=== PATIENT | male | born 1950 | race Caucasian/White ===

== ENCOUNTER 2022-09-25 12:53 | Outpatient (CLI) | payer MEDICARE, OTHER, SELFPAY ==
--- NOTE | 2022-09-25 13:20 | CT_ITS ---
WS: [id number] CT ABDOMEN PELVIS TECHNIQUE: Noncontrast CT of the abdomen and pelvis with coronal and sagittal reformatted images. CLINICAL INFORMATION: HEMATOSPERMIA/HX OF KIDNEY STONES COMPARISON: CT 2019 DLP: 422.[address] scans at [facility] use at least one of these dose optimization techniques: automated e xposure control; mA and/or kV adjustment per patient size (includes targeted exams where dose is matc hed to clinical indication); or iterative reconstruction. FINDINGS: Lung bases are well aerated. Noncontrast liver is normal. Gallbladder is contracted. Normal noncontra st spleen. Normal GE junction. Adrenal glands are normal. Noncontrast pancreas is normal. Normal caliber abdominal aorta. No hydrone phrosis in either kidney. No obstructing renal or ureteral calculi. Pelvic phleboliths. Small increas ed attenuation RIGHT renal parenchymal lesion likely proteinaceous or hemorrhagic cyst measuring 5 mm . Sigmoid constipation. No high-grade small or large bowel obstruction. Prominent prostate measuring 4. [address]/CT abdomen pelvis wo con [id number] IMPRESSION: 1. Enlarged RIGHT hepatic lobe with mild hepatomegaly. 2. No hydronephrosis in either kidney. No obstructing renal or ureteral calcul i. 3. Enlarged prostate measuring 4.5 CM. 4. Sigmoid constipation. 5. No other remarkable findings.
[2022-09-25 13:49] LABS: Basophils # 0.1 10^3/uL (0.0-0.1); Basophils % 0.9 %; Eosinophils # 0.2 10^3/uL (0.0-0.8); Eosinophils % 3.6 %; Hematocrit 43.8 % (42.0-52.0); Lymphocytes # 2.1 10^3/uL (0.8-4.8); Lymphocytes % 33.3 %; Mean Corpuscular Hemoglobin 31.1 pg (28.0-34.0); Mean Corpuscular Volume 97.3 fl (80-94); Mean Platelet Volume 9.9 fL (7.4-10.4); Monocytes # 0.4 10^3/uL (0.2-0.9); Monocytes % 6.4 %; Neutrophils # 3.52 10^3/uL (1.8-7.7); Neutrophils % 55.5 %; Nucleated Red Blood Cells % 0 %; Platelet Count 219 10^3/cmm (130-400); White Blood Count 6.4 10^3/uL (4.0-10.0)
[2022-09-25 17:35] LABS: Prostate Specific Antigen 0.926 ng/mL (0-4)
== END 2022-09-25 12:54 | disposition home or self-care (01) ==
PROVIDERS: PCP Nurse Practitioner Family; Visit Provider Nurse Practitioner Family
DX: N42.9 Disorder of prostate, unspecified (principal); Z87.442 Personal history of urinary calculi; R16.0 Hepatomegaly, not elsewhere classified; K59.00 Constipation, unspecified; N40.0 Benign prostatic hyperplasia without lower urinary tract symptoms
CPT/HCPCS: 74176; 84153; 85025

== ENCOUNTER 2023-11-05 11:52 | Emergency (ER) | payer MEDICARE, OTHER, SELFPAY ==
[2023-11-05 12:14] VITALS: PULSE 76; RESP 18; TEMP 36.6; O2SAT 98; BMI 21.7
--- NOTE | 2023-11-05 12:56 | ED_ITS ---
HPI - Animal Bite General: Chief Complaint: Animal Bite Stated Complaint: dog bite Time Seen by Provider: 11/05/23 12:50 History of Present Illness: 73-year-old male patient comes in for ev aluation of injuries secondary to a dog bite. Patient was riding his bike today when he was bit by dog on the leash. 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 Patient has some gaping lacerations to the right calf. Patient is ambulatory. Patient appears nontoxic. Review of Systems General: Reports: 10 or more systems reviewed and unremarkable except in HPI and below Skin/Breast: Reports: new lesions Physical Exam HENMT: COMMON NORMALS: atraumatic HEAD & SCALP: atraumatic Neck/C-Spine: COMMON NORMALS: full ROM Resp: COMMON NORMALS: normal respiratory effort and clear to auscultation bilaterally AUSCULTATION: clear to auscultation bilaterally Cardio: COMMON NORMALS: regular rate RATE: regular rate Back/Pelvis: COMMON NORMALS: thoracic and lumbar spine normal to inspection Extremity: RIGHT LOWER EXTREMITY: Yes lower leg (Irregular laceration) Skin: TRAUMA: laceration (Right lower leg) irregular Procedures Laceration Laceration 1: Site: lower extremity Side (If applicable): right Size (cm): 6 Depth: simple, single layer Local Anesthetic: lidocaine 1% Amount of anesthesia used (mL): 5 Pre-repair: wound explored and irrigated extensively Skin layer closed with: nylon Size (cm): 4-0 Number of sutures: 7 Technique: simple, interrupted Course Vital Signs: Vital signs: Vital Signs Temperature 97.9 F 11/05/23 12:14 Pulse Rate 76 11/05/23 12:14 Respiratory Rate 18 11/05/23 12:14 Pulse Oximetry 98 11/05/23 12:14 Oxygen Delivery Me thod Room Air 11/05/23 12:14 MDM - Animal Bite Medical Decision Making Patient comes in today for a dog bite to the right lower leg. Patient reports no other injuries. Patient was riding his bike when he passed the dog and bit him as he passed. Patient has an updated tetanus. Patient states the dog owners stated the dog's rabies vaccines are up-to-date. Irregular laceration was noted to the right calf. Patient was ambulatory without difficulty. Differential diagnosis includes fracture, foreign body, laceration need for prophylaxis tetanus. Tetanus is up-to-date. No foreign bodies or fracture was noted. Gaping wound was cleaned and closed with sutures loosely. Patient be placed on Augmentin for prophylaxis antibiotic coverage. Patient reported understanding of care plan need for follow-up for suture removal in 7 to 10 days and use of antibiotic. No radiology studies performed this visit Discharge Plan Discharge Patient Disposition: Home Clinical Impression: Dog bite Qualifiers: Encounter type: initial encounter Qualified Code(s): W54.0XXA - Bitten by dog, initial encounter Laceration of leg, right Qualifiers: Encounter type: initial encounter Qualified Code(s): S81.811A - Laceration without foreign body, right lower leg, initial encounter Condition: Stable Prescriptions: New amoxicillin-pot clavulanate 875-125 mg tablet 1 tab PO BID Qty: 20 0RF Discharge Orders: Discharge ED (Routine); Ordered 11/05/23 Ordered By: Kobe Brandon Referrals: Lashaun Christiansen FNP [Primary Care Provider] - Discharge Diet: Usual diet Discharge Activity: Increase activity as tolerated Patient Instructions: Care For Your Stitches (ED) Activity Restrictions/Additional Instructions: Keep wound clean and dry. Is very important to keep the wound as dry as possible for the first 48 hours. After that you can wash wound gently with mild soap and water dry thoroughly and cover for protection. Wound may be left open if not draining or is in an environment that went well stay clean. Follow-up with primary care in 7 to 10 days for suture removal. Return to ED for new concerns. Coding Level of Care Code ED Ammunition Components Inspector for Javi Marquez
[2023-11-05 13:58] VITALS: BP 132/84; PULSE 74; RESP 16; TEMP 36.6; O2SAT 99
== END 2023-11-05 14:04 | disposition home or self-care (01) ==
PROVIDERS: Emergency Provider Nurse Practitioner Family; PCP Nurse Practitioner Family
DX: S81.851A Open bite, right lower leg, initial encounter (principal); W54.0XXA Bitten by dog, initial encounter
CPT/HCPCS: 12002; 99283